=== PATIENT | male | born 1990 | race African-American/Black ===

== ENCOUNTER 2018-12-24 23:18 | Emergency (ER) | payer SELFPAY ==
[~2018-12-24] VITALS: Ht 175.3 cm; Wt 79.0 kg
[2018-12-25 00:15] VITALS: BP 117/81
== END 2018-12-25 04:22 | disposition left against medical advice (07) ==
LOC: ER 23:18
DX: K13.79 Other lesions of oral mucosa (principal); R25.2 Cramp and spasm
CPT/HCPCS: 99281